=== PATIENT | female | born 1975 | race Caucasian/White ===

== ENCOUNTER → 2016-07-28 | Outpatient (CLI) | payer MEDICARE, MEDICAID ==
[~2016-07-28] MED LIST: /AUGM875TA; /DULO30CA PO; /ESOM40CA; /FENT25PA; /PANT40TA; /SUCR1TA OR; AMIT25TA2 PO; AMIT50TA2; ATEN25TA; CETI10TA; CLONIDINE PO; COLA100C2; COLA100C2 PO; DEPO SHOT; FERROUS SULFATE PO; FURO40TA2; MAXALT PO; MAXALT-MLT; MELOPOW PO; MORP30TA4; MORPHINE SULFATE IR PO; MOTRIN; NEUR600T PO; OXYC10TA12; PERC5TAB8; PRIL40CA PO; PROPANOLOL PO; REQUIP PO; ROZEREM; SAVELLA; SKELAXIN PO; SOMA350T; TOPI25TA2 PO; TRAM50TA2; VIT D; VITAMIN D; VITAMIN D50000 UNT; ZYRTEC; [UNRECOGNIZED DRUG - OTHER]; [UNRECOGNIZED DRUG - OTHER]
== END ==
LOC: M SMT 10:09
PROVIDERS: ATTEND Nurse Practitioner Family
DX: D80.1 Nonfamilial hypogammaglobulinemia (principal)

== ENCOUNTER → 2016-07-28 | Outpatient (CLI) | payer MEDICARE, MEDICAID ==
[2016-07-28 13:33] LABS: MEAN CORPUSCULAR HEMOGLOBIN 30.4 pg (27.0-33.0); MEAN CORPUSCULAR HGB CONC 32.1 g/dl (32.0-36.5); MEAN CORPUSCULAR VOLUME 94.8 fl (80.0-96.0); RED CELL DISTRIBUTION WIDTH 12.2 % (11.5-14.5); WHITE BLOOD COUNT 5.3 K/mm3 (4.0-10.0)
[2016-07-28 14:18] LABS: ALBUMIN 3.4 GM/DL (3.2-5.2); ALBUMIN/GLOBULIN RATIO 1.36 (1.00-1.93); ALKALINE PHOSPHATASE 112 U/L (45-117); ALT/SGPT 124 U/L (12-78); ANION GAP 8 MEQ/L (8-16); AST/SGOT 59 U/L (15-37); BILIRUBIN,TOTAL 0.3 MG/DL (0.2-1.0); BLOOD UREA NITROGEN 13 MG/DL (7-18); CALCIUM LEVEL 8.7 MG/DL (8.5-10.1); CARBON DIOXIDE LEVEL 25 MEQ/L (21-32); CHLORIDE LEVEL 110 MEQ/L (98-107); CHOLESTEROL LEVEL 171 MG/DL (<200); CREATININE FOR GFR 0.64 MG/DL (0.55-1.02); FERRITIN 641 NG/ML (8-252); GLOMERULAR FILTRATION RATE > 60.0 (>60); GLUCOSE, FASTING 86 MG/DL (70-105); PERCENT SATURATION 41.6 % (13.2-37.4); POTASSIUM SERUM 4.2 MEQ/L (3.5-5.1); SODIUM LEVEL 143 MEQ/L (136-145); TOTAL IRON BINDING CAPACITY 257 UG/DL (250-450); TOTAL PROTEIN 5.9 GM/DL (6.4-8.2); TRIGLYCERIDES LEVEL 100 MG/DL (<150)
== END ==
LOC: M SMT 10:03
PROVIDERS: ATTEND Nurse Practitioner Family
DX: D80.1 Nonfamilial hypogammaglobulinemia (principal); E78.5 Hyperlipidemia, unspecified; D53.9 Nutritional anemia, unspecified; E55.9 Vitamin D deficiency, unspecified; E11.9 Type 2 diabetes mellitus without complications

== ENCOUNTER → 2016-08-13 | Outpatient (CLI) | payer MEDICARE, MEDICAID ==
--- NOTE | 2016-08-13 09:30 | REP ---
HEPATIC ULTRASOUND: 08/13/2016 CLINICAL HISTORY: Elevated LFTs. COMPARISON: Ultrasound 09/18/2013, CT without contrast 10/13/2013. FINDINGS: Sonographic evaluation of the right upper quadrant shows the liver generally homogeneous in its echotexture. There is one subcapsular hyperechoic focus posteriorly in the right lobe of the liver unchanged from the previous ultrasound and seen as a capsular or subcapsular calcification on the CT at about the level of the right adrenal gland on that study. There is no visible hepatic mass, intrahepatic biliary dilatation nor adjacent ascites. The gallbladder is surgically absent. Common duct is 5.8 mm without a filling defect or stone. Pancreas is obscured by fairly extensive bowel gas shadowing. Right kidney is 12.4 x 5.5 x 4 cm and shows no hydronephrosis or stone. IMPRESSION: 1. Homogeneous liver parenchymal appearance without mass, cyst, dilated duct or ascites. Small subcapsular calcification again noted posterior right hepatic lobe unchanged from multiple prior studies. 2. Status post cholecystectomy with common duct without a stone and normal size for postoperative patient. 3. Right kidney unremarkable and the pancreas obscured. There was no ascites. Signed by John Trevino MD 08/13/2016 12:00 P
== END ==
LOC: M RAD 07:42
PROVIDERS: ATTEND Nurse Practitioner Family
DX: R79.89 Other specified abnormal findings of blood chemistry (principal)

== ENCOUNTER 2016-10-04 08:45 | Emergency (ER) | payer MEDICARE, MEDICAID ==
[~2016-10-04] VITALS: Ht 170.2 cm; Wt 90.7 kg
[2016-10-04] MEDS ORDERED: ROPI3TAB PO (09:06)
[2016-10-04] MEDS ORDERED: OMEP40CA2 PO (09:06)
[2016-10-04] MEDS ORDERED: MAXA10TA15 PO (09:06)
[2016-10-04] MEDS ORDERED: META800T82 PO (09:06)
[2016-10-04] MEDS ORDERED: INDE80CA PO (09:06)
[2016-10-04] MEDS ORDERED: FERR325T3 PO (09:06)
[2016-10-04] MEDS ORDERED: AMIT100TA PO (09:06)
[2016-10-04] MEDS ORDERED: TOPI50TA4 PO (09:06)
[2016-10-04] MEDS ORDERED: MORP-38 PO (09:06)
[2016-10-04] MEDS ORDERED: TOPI200T4 PO (09:06)
[2016-10-04] MEDS ORDERED: ATIV1TAB7 PO (09:06)
[2016-10-04] MEDS ORDERED: BUPIVACAINE INJ (09:06)
[2016-10-04] MEDS ORDERED: MORP15IN4 IJ (09:06)
[2016-10-04] MEDS ORDERED: GABA-283 PO (09:06)
[2016-10-04] MEDS ORDERED: QUET1TAB8 PO (09:06)
[2016-10-04] MEDS ORDERED: MORPHINE INJ (09:06)
[2016-10-04] MEDS ORDERED: DULO30CA PO (09:06)
[2016-10-04] MEDS ORDERED: MONT10TA2 PO (09:06)
[2016-10-04] MEDS ORDERED: ONDANSETRON 4MG/2ML VIAL (J2405) As Ordered ONE (09:29)
[2016-10-04] MEDS ORDERED: ONDANSETRON 4MG/2ML VIAL (J2405) IV ONE (09:30)
[2016-10-04] MEDS ORDERED: LR 1,000 ML IV ONE (09:30)
[2016-10-04 09:57] LABS: BASO % 0.3 % (0.0-1.0); EOS % 0.6 % (0.0-3.0); LARGE UNSTAINED CELL # 0.1 K/mm3 (0.0-0.4); LARGE UNSTAINED CELL % 1.1 % (0.0-4.0); LYMPH # 1.2 K/mm3 (1.5-4.5); LYMPH % 23.2 % (24.0-44.0); MEAN CORPUSCULAR VOLUME 88.6 fl (80.0-96.0); MONO # 0.2 K/mm3 (0.0-0.8); MONO % 4.2 % (0.0-5.0); NEUTROPHILS # 3.5 K/mm3 (1.8-7.7); NEUTROPHILS % 70.6 % (36.0-66.0); PLATELET COUNT, AUTOMATED 191 k/mm3 (150-450); RED CELL DISTRIBUTION WIDTH 11.3 % (11.5-14.5)
[2016-10-04 10:39] LABS: ALBUMIN 4.1 GM/DL (3.2-5.2); ALBUMIN/GLOBULIN RATIO 1.41 (1.00-1.93); ALKALINE PHOSPHATASE 83 U/L (45-117); ALT/SGPT 23 U/L (12-78); ANION GAP 9 MEQ/L (8-16); AST/SGOT 12 U/L (15-37); BILIRUBIN,TOTAL 0.4 MG/DL (0.2-1.0); BLOOD UREA NITROGEN 8 MG/DL (7-18); CARBON DIOXIDE LEVEL 24 MEQ/L (21-32); CHLORIDE LEVEL 111 MEQ/L (98-107); CREATININE FOR GFR 0.58 MG/DL (0.55-1.02); GLOMERULAR FILTRATION RATE > 60.0 (>60); GLUCOSE, FASTING 95 MG/DL (70-105); POTASSIUM SERUM 3.6 MEQ/L (3.5-5.1); SODIUM LEVEL 144 MEQ/L (136-145)
[2016-10-04] MEDS ORDERED: ZOFR4TAB3 PO (11:31)
[2016-10-04 11:37] VITALS: BP 147/98
== END 2016-10-04 11:48 | disposition home or self-care (01) ==
LOC: M ED 09:41
DX: K29.70 Gastritis, unspecified, without bleeding (principal); M54.9 Dorsalgia, unspecified; G89.29 Other chronic pain; Z87.891 Personal history of nicotine dependence; Z88.1 Allergy status to other antibiotic agents; Z88.8 Allergy status to other drugs, medicaments and biological substances; Z79.899 Other long term (current) drug therapy
CPT/HCPCS: 80053; 83690; 85025; 96374; 99282; J2405

== ENCOUNTER 2016-10-09 19:39 | Emergency (ER) | payer MEDICARE, MEDICAID ==
[~2016-10-09] VITALS: Ht 170.2 cm; Wt 90.7 kg
[~2016-10-09 19:39] MED LIST changes: +AMIT100TA PO; +ATIV1TAB7 PO; +BUPIVACAINE INJ; +DULO30CA PO; +FERR325T3 PO; +GABA-283 PO; +INDE80CA PO; +MAXA10TA15 PO; +META800T82 PO; +MONT10TA2 PO; +MORP-38 PO; +MORP15IN4 IJ; +MORPHINE INJ; +OMEP40CA2 PO; +QUET1TAB8 PO; +ROPI3TAB PO; +TOPI200T4 PO; +TOPI50TA4 PO; +ZOFR4TAB3 PO
[2016-10-09] MEDS ORDERED: FLUORESCEIN OPHTH 1 MG STRIP OD ONE (23:30)
[2016-10-09] MEDS ORDERED: TETRACAINE 0.5% OPHTH SOLN 4ML OU ONE (23:30)
[2016-10-10] MEDS ORDERED: ERYTHROMYCIN OPHTH OINT OD ONE
[2016-10-10] MEDS ORDERED: valACYclovir HCL 500 MG TAB PO ONE
[2016-10-10] MEDS ORDERED: VALT1TAB PO (00:01)
[2016-10-10] MEDS ORDERED: ERYTOIN8 OD (00:04)
[2016-10-10 00:27] VITALS: BP 132/84
== END 2016-10-10 00:30 | disposition home or self-care (01) ==
LOC: M ED 20:52
DX: B02.9 Zoster without complications (principal)
CPT/HCPCS: 99282; G0463

== ENCOUNTER → 2016-11-24 | Outpatient (CLI) | payer MEDICARE, MEDICAID ==
[~2016-11-24] MED LIST changes: +ERYTOIN8 OD; +VALT1TAB PO
[2016-11-24 11:29] LABS: MEAN CORPUSCULAR HEMOGLOBIN 31.2 pg (27.0-33.0); MEAN CORPUSCULAR HGB CONC 32.7 g/dl (32.0-36.5); MEAN CORPUSCULAR VOLUME 95.6 fl (80.0-96.0); RED CELL DISTRIBUTION WIDTH 12.1 % (11.5-14.5); WHITE BLOOD COUNT 4.3 K/mm3 (4.0-10.0)
[2016-11-24 12:13] LABS: ALBUMIN 3.6 GM/DL (3.2-5.2); ALBUMIN/GLOBULIN RATIO 1.38 (1.00-1.93); ALKALINE PHOSPHATASE 82 U/L (45-117); ALT/SGPT 35 U/L (12-78); ANION GAP 7 MEQ/L (8-16); AST/SGOT 12 U/L (15-37); BILIRUBIN,TOTAL 0.3 MG/DL (0.2-1.0); BLOOD UREA NITROGEN 10 MG/DL (7-18); CALCIUM LEVEL 8.5 MG/DL (8.5-10.1); CARBON DIOXIDE LEVEL 23 MEQ/L (21-32); CHLORIDE LEVEL 113 MEQ/L (98-107); CHOLESTEROL LEVEL 172 MG/DL (<200); CREATININE FOR GFR 0.73 MG/DL (0.55-1.02); FERRITIN 567 NG/ML (8-252); GLOMERULAR FILTRATION RATE > 60.0 (>60); GLUCOSE, FASTING 91 MG/DL (70-105); PERCENT SATURATION 26.1 % (13.2-37.4); POTASSIUM SERUM 3.9 MEQ/L (3.5-5.1); SODIUM LEVEL 143 MEQ/L (136-145); TOTAL IRON BINDING CAPACITY 245 UG/DL (250-450); TOTAL PROTEIN 6.2 GM/DL (6.4-8.2); TRIGLYCERIDES LEVEL 98 MG/DL (<150)
== END ==
LOC: M LRY 08:11
PROVIDERS: ATTEND Internal Medicine Cardiovascular Disease
DX: D64.9 Anemia, unspecified (principal); E78.00 Pure hypercholesterolemia, unspecified; R73.9 Hyperglycemia, unspecified

== ENCOUNTER → 2017-01-01 | Outpatient (CLI) | payer MEDICARE, MEDICAID ==
[~2017-01-01] MED LIST changes: +BENA25CA4 PO; +DEPO150I IM; +DRIS50002 PO; +TOPA100T8 PO
[2017-01-01 11:47] LABS: FREE T4 0.87 NG/DL (0.76-1.46)
== END ==
LOC: M LAB 10:30
PROVIDERS: ATTEND Nurse Practitioner Family
DX: E04.1 Nontoxic single thyroid nodule (principal)

== ENCOUNTER → 2017-01-01 | Outpatient (CLI) | payer MEDICARE, MEDICAID ==
--- NOTE | 2017-01-01 11:22 | REP ---
CT cervical spine without contrast HISTORY: Cervicalgia COMPARISON: 05/17/2015 There is no acute fracture or subluxation. There is no disc bulge or herniation. The spinal canal and neural foramina are patent. The intervertebral discs and vertebral bodies are normal in height. IMPRESSION: There is no acute fracture or subluxation. Signed by William Dobbs MD 01/01/2017 11:13 A
== END ==
LOC: M RAD 10:33
PROVIDERS: ATTEND Physician Assistant Medical
DX: M54.2 Cervicalgia (principal); M47.892 Other spondylosis, cervical region; E04.1 Nontoxic single thyroid nodule

== ENCOUNTER → 2017-01-13 | Outpatient (CLI) | payer MEDICARE, MEDICAID ==
[~2017-01-13] VITALS: Ht 170.2 cm; Wt 89.8 kg
[~2017-01-13] MED LIST changes: +LIDOCAINE 2% INJ 100 MG/5 ML SDV (FOR ANES.) As Ordered ONE; +NS 1,000 ML IV ONE; +PROPOFOL 500 MG/50 ML VIAL As Ordered ONE
--- NOTE | 2017-01-13 11:20 | ROOR ---
Patient Name: Consuelo Huber Procedure Date: 01/13/2017 10:59 AM Date of : 1975 Age: 41 Room: [facility] Gender: Female Note Status: Finalized Procedure: Upper GI endoscopy Indications: Follow-up of gastritis Providers: Rayshawn Parish MD Referring MD: OBDULIA SANTORO MD Requesting Provider: Medicines: Monitored Anesthesia Care Complications: No immediate complications. Procedure: Pre-Anesthesia Assessment: - Prior to the procedure, a History and Physical was performed, and patient medications and allergies were reviewed. The patient is competent. The risks and benefits of the procedure and the sedation options and risks were discussed with the patient. All questions were answered and informed consent was obtained. Patient identification and proposed procedure were verified by the physician, the nurse and the anesthesiologist in the procedure room. Mental Status Examination: alert and oriented. Airway Examination: normal oropharyngeal airway and neck mobility. Respiratory Examination: clear to auscultation. CV Examination: normal. Prophylactic Antibiotics: The patient does not require prophylactic antibiotics. Prior Anticoagulants: The patient has taken no previous anticoagulant or antiplatelet agents. ASA Grade Assessment: III - A patient with severe systemic disease. After reviewing the risks and benefits, the patient was deemed in satisfactory condition to undergo the procedure. The anesthesia plan was to use monitored anesthesia care (MAC). Immediately prior to administration of medications, the patient was re-assessed for adequacy to receive sedatives. The heart rate, respiratory rate, oxygen saturations, blood pressure, adequacy of pulmonary ventilation, and response to care were monitored throughout the procedure. The physical status of the patient was re-assessed after the procedure. The Endoscope was introduced through the mouth, and advanced to the afferent and efferent jejunal loops. The upper GI endoscopy was accomplished without difficulty. The patient tolerated the procedure well. Findings: The examined esophagus was normal. The entire examined stomach was normal. The examined jejunum was normal. Impression: - Normal esophagus. - Normal stomach. - Normal examined jejunum. - No specimens collected. - Normal examination. Recommendation: - Discharge patient to home (ambulatory). Rayshawn Parish MD Rayshawn Parish MD 01/13/2017 11:20:34 AM This report has been signed electronically. Number of Addenda: 0 Note Initiated On: 01/13/2017 10:59 AM Estimated Blood Loss: Estimated blood loss: none.
--- NOTE | 2017-01-13 11:24 | ROOR ---
Patient Name: Consuelo Huber Procedure Date: 01/13/2017 11:00 AM Date of : 1975 Age: 41 Room: [facility] Gender: Female Note Status: Finalized Procedure: Colonoscopy Indications: High risk colon cancer surveillance: Personal history of colonic polyps, Incidental - Constipation Providers: Rayshawn Parish MD Referring MD: OBDULIA SANTORO MD Requesting Provider: Medicines: Monitored Anesthesia Care Complications: No immediate complications. Procedure: Pre-Anesthesia Assessment: - Prior to the procedure, a History and Physical was performed, and patient medications and allergies were reviewed. The patient is competent. The risks and benefits of the procedure and the sedation options and risks were discussed with the patient. All questions were answered and informed consent was obtained. Patient identification and proposed procedure were verified by the physician, the nurse and the anesthesiologist in the procedure room. Mental Status Examination: alert and oriented. Airway Examination: normal oropharyngeal airway and neck mobility. Respiratory Examination: clear to auscultation. CV Examination: normal. Prophylactic Antibiotics: The patient does not require prophylactic antibiotics. Prior Anticoagulants: The patient has taken no previous anticoagulant or antiplatelet agents. ASA Grade Assessment: III - A patient with severe systemic disease. After reviewing the risks and benefits, the patient was deemed in satisfactory condition to undergo the procedure. The anesthesia plan was to use monitored anesthesia care (MAC). Immediately prior to administration of medications, the patient was re-assessed for adequacy to receive sedatives. The heart rate, respiratory rate, oxygen saturations, blood pressure, adequacy of pulmonary ventilation, and response to care were monitored throughout the procedure. The physical status of the patient was re-assessed after the procedure. The Colonoscope was introduced through the anus with the intention of advancing to the ileum. The scope was advanced to the sigmoid colon before the procedure was aborted. Medications were given. The colonoscopy was aborted due to poor bowel prep with stool present. Findings: The perianal exam findings include non-thrombosed external hemorrhoids. Impression: - The procedure was aborted due to poor bowel prep with stool present. - Non-thrombosed external hemorrhoids found on perianal exam. - No specimens collected. - The exam was suboptimal due to patient preparation. Recommendation: - Discharge patient to home (ambulatory). - Repeat colonoscopy at the next available appointment because the bowel preparation was poor. - Return to my office in 1 month. Rayshawn Parish MD Rayshawn Parish MD 01/13/2017 11:24:07 AM This report has been signed electronically. Number of Addenda: 0 Note Initiated On: 01/13/2017 11:00 AM Estimated Blood Loss: Estimated blood loss: none.
[2017-01-13 11:49] VITALS: BP 101/73
== END | disposition home or self-care (01) ==
LOC: M OPP 10:29
PROVIDERS: ATTEND Surgery
DX: Z12.11 Encounter for screening for malignant neoplasm of colon (principal); Z86.010 Personal history of colon polyps; K59.01 Slow transit constipation; K64.4 Residual hemorrhoidal skin tags; K29.70 Gastritis, unspecified, without bleeding; R10.9 Unspecified abdominal pain; R63.5 Abnormal weight gain; R12 Heartburn; Z87.11 Personal history of peptic ulcer disease; E04.1 Nontoxic single thyroid nodule; M19.90 Unspecified osteoarthritis, unspecified site; M54.9 Dorsalgia, unspecified; M79.7 Fibromyalgia; Z87.19 Personal history of other diseases of the digestive system; F41.9 Anxiety disorder, unspecified; F32.9 Major depressive disorder, single episode, unspecified; G43.909 Migraine, unspecified, not intractable, without status migrainosus; Z98.1 Arthrodesis status; Z98.84 Bariatric surgery status; Z88.8 Allergy status to other drugs, medicaments and biological substances; Z88.1 Allergy status to other antibiotic agents; Z79.899 Other long term (current) drug therapy; Z80.9 Family history of malignant neoplasm, unspecified

== ENCOUNTER → 2017-03-31 | Outpatient (CLI) | payer MEDICARE, MEDICAID ==
[~2017-03-31] MED LIST changes: -LIDOCAINE 2% INJ 100 MG/5 ML SDV (FOR ANES.) As Ordered ONE; +META1TAB22 PO; -META800T82 PO; -NS 1,000 ML IV ONE; -PROPOFOL 500 MG/50 ML VIAL As Ordered ONE; +TOPA100T12 PO; -TOPA100T8 PO; -TOPI200T4 PO; +TOPI200T7 PO; -TOPI50TA4 PO; +TOPI50TA9 PO
[2017-03-31 06:52] LABS: MEAN CORPUSCULAR HEMOGLOBIN 30.2 pg (27.0-33.0); MEAN CORPUSCULAR HGB CONC 33.4 g/dl (32.0-36.5); MEAN CORPUSCULAR VOLUME 90.4 fl (80.0-96.0); RED CELL DISTRIBUTION WIDTH 12.2 % (11.5-14.5); WHITE BLOOD COUNT 5.2 K/mm3 (4.0-10.0)
[2017-03-31 07:20] LABS: ALBUMIN 3.6 GM/DL (3.2-5.2); ALBUMIN/GLOBULIN RATIO 1.44 (1.00-1.93); ALKALINE PHOSPHATASE 101 U/L (45-117); ALT/SGPT 59 U/L (12-78); ANION GAP 6 MEQ/L (8-16); AST/SGOT 17 U/L (15-37); BILIRUBIN,TOTAL 0.4 MG/DL (0.2-1.0); BLOOD UREA NITROGEN 12 MG/DL (7-18); CALCIUM LEVEL 8.4 MG/DL (8.5-10.1); CARBON DIOXIDE LEVEL 27 MEQ/L (21-32); CHLORIDE LEVEL 109 MEQ/L (98-107); CHOLESTEROL LEVEL 171 MG/DL (<200); CREATININE FOR GFR 0.79 MG/DL (0.55-1.02); GLOMERULAR FILTRATION RATE > 60.0 (>58); GLUCOSE, FASTING 85 MG/DL (70-105); POTASSIUM SERUM 3.9 MEQ/L (3.5-5.1); SODIUM LEVEL 142 MEQ/L (136-145); TOTAL PROTEIN 6.1 GM/DL (6.4-8.2); TRIGLYCERIDES LEVEL 79 MG/DL (<150)
== END ==
LOC: M LAB 06:16
PROVIDERS: ATTEND Internal Medicine Cardiovascular Disease
DX: I10 Essential (primary) hypertension (principal); R73.01 Impaired fasting glucose

== ENCOUNTER 2017-05-05 06:48 | Outpatient (CLI) | payer MEDICARE, MEDICAID ==
[~2017-05-05] VITALS: Ht 170.2 cm; Wt 90.7 kg
[2017-05-05] MEDS ORDERED: NS 1,000 ML IV SCH (07:00)
[2017-05-05] MEDS ORDERED: SIMETHICONE 40MG/0.6ML DROPS 30ML As Ordered ONE (07:02)
[2017-05-05] MEDS ORDERED: PROPOFOL 200 MG/20 ML VIAL As Ordered ONE ×2 (07:30→08:06)
[2017-05-05] MEDS ORDERED: LIDOCAINE 2% INJ 100 MG/5 ML SDV (FOR ANES.) As Ordered ONE (07:30)
--- NOTE | 2017-05-05 08:18 | ROOR ---
Patient Name: Consuelo Huber Procedure Date: 05/05/2017 7:34 AM Date of : 1975 Age: 42 Room: [facility] Gender: Female Note Status: Finalized Procedure: Colonoscopy Indications: Family history of colon cancer in multiple second-degree relatives, Constipation Providers: Rayshawn Parish MD Referring MD: KITTY NGUYEN NP Requesting Provider: Medicines: Monitored Anesthesia Care Complications: No immediate complications. Procedure: Pre-Anesthesia Assessment: - Prior to the procedure, a History and Physical was performed, and patient medications and allergies were reviewed. The patient is competent. The risks and benefits of the procedure and the sedation options and risks were discussed with the patient. All questions were answered and informed consent was obtained. Patient identification and proposed procedure were verified by the physician, the nurse and the anesthesiologist in the endoscopy suite. Mental Status Examination: alert and oriented. Airway Examination: normal oropharyngeal airway and neck mobility. Respiratory Examination: clear to auscultation. CV Examination: normal. Prophylactic Antibiotics: The patient does not require prophylactic antibiotics. Prior Anticoagulants: The patient has taken no previous anticoagulant or antiplatelet agents. ASA Grade Assessment: III - A patient with severe systemic disease. After reviewing the risks and benefits, the patient was deemed in satisfactory condition to undergo the procedure. The anesthesia plan was to use monitored anesthesia care (MAC). Immediately prior to administration of medications, the patient was re-assessed for adequacy to receive sedatives. The heart rate, respiratory rate, oxygen saturations, blood pressure, adequacy of pulmonary ventilation, and response to care were monitored throughout the procedure. The physical status of the patient was re-assessed after the procedure. The Colonoscope was introduced through the anus and advanced to the cecum, identified by appendiceal orifice and ileocecal valve. The colonoscopy was technically difficult and complex due to a redundant colon. Successful completion of the procedure was aided by applying abdominal pressure. The patient tolerated the procedure well. The quality of the bowel preparation was good. Findings: The perianal and digital rectal examinations were normal. The lumen of the colon (entire examined portion) was moderately dilated. Three flat polyps were found in the distal sigmoid colon. The polyps were diminutive in size. These polyps were removed with a cold snare. Resection and retrieval were complete. Estimated blood loss was minimal. No additional abnormalities were found on retroflexion. Impression: - Dilated in the entire examined colon. - Three diminutive polyps in the distal sigmoid colon, removed with a cold snare. Resected and retrieved. Recommendation: - Discharge patient to home (ambulatory). - Miralax 1 capful (17 grams) in 8 ounces of water PO daily indefinitely. - Repeat colonoscopy in 5 years for surveillance based on pathology results. Rayshawn Parish MD Rayshawn Parish MD 05/05/2017 8:18:29 AM This report has been signed electronically. Number of Addenda: 0 Note Initiated On: 05/05/2017 7:34 AM Estimated Blood Loss: Estimated blood loss was minimal.
[2017-05-05 08:35] VITALS: BP 120/79
== END 2017-05-05 08:41 | disposition home or self-care (01) ==
LOC: M OPP 06:48
PROVIDERS: ATTEND Surgery
DX: K59.01 Slow transit constipation (principal); R10.84 Generalized abdominal pain; Z86.010 Personal history of colon polyps; Z80.0 Family history of malignant neoplasm of digestive organs; K63.5 Polyp of colon; E04.1 Nontoxic single thyroid nodule; R12 Heartburn; D64.9 Anemia, unspecified; K25.5 Chronic or unspecified gastric ulcer with perforation; E11.9 Type 2 diabetes mellitus without complications; M19.90 Unspecified osteoarthritis, unspecified site; M41.9 Scoliosis, unspecified; M79.7 Fibromyalgia; F41.9 Anxiety disorder, unspecified; F32.9 Major depressive disorder, single episode, unspecified; G43.909 Migraine, unspecified, not intractable, without status migrainosus; Z98.1 Arthrodesis status; Z87.19 Personal history of other diseases of the digestive system; Z98.84 Bariatric surgery status; Z88.1 Allergy status to other antibiotic agents; Z88.8 Allergy status to other drugs, medicaments and biological substances; Z97.8 Presence of other specified devices; Z79.899 Other long term (current) drug therapy; Z79.891 Long term (current) use of opiate analgesic

== ENCOUNTER → 2017-07-06 | Outpatient (CLI) | payer MEDICARE, MEDICAID ==
--- NOTE | 2017-07-07 16:25 | REP ---
RIGHT HAND COMPLETE: 07/06/2017: Clinical history: Trauma. Patient fell on her right side. The patient did not want to extend her fingers. Findings: Distal radius and ulna were grossly intact. Carpal bones and joint spaces were unremarkable. Metacarpals and phalanges show no fracture, subluxation or focal lesion. I do not see a radiopaque foreign body. Impression: 1. No fracture, avulsion, radiopaque foreign body or other acute finding. Signed by John Trevino MD 07/07/2017 04:30 P
--- NOTE | 2017-07-07 16:25 | REP ---
RIGHT ELBOW COMPLETE: 07/06/2017. Clinical history: Patient fell on right side, trauma. States pain medial side of the elbow. Four views were provided. Radial head and capitellum align normally. There is a small bone island within the capitellum. No radial head fracture or impaction injury. The proximal ulna and olecranon grossly intact as was the coronoid process of the olecranon. No avulsion at the triceps insertion on the posterior olecranon. Distal humerus and supracondylar region show no fracture. No abnormal soft-tissue calcification about the medial or lateral epicondyles. Impression: 1. No visible or displaced fracture, avulsion, joint effusion or other acute bony finding about the right elbow. Signed by John Trevino MD 07/07/2017 04:29 P
--- NOTE | 2017-07-07 16:26 | REP ---
RIGHT WRIST COMPLETE: 07/06/2017. Clinical history: Right wrist pain, patient fell. Findings: Four views are provided. Comparison to the right hand series today. Distal radius and ulna without fracture or focal lesion. Minimal ulna minus variant suggested. Radiocarpal articulation was unremarkable. Carpal bones and joint spaces were intact. The proximal metacarpals and their articulations were also normal. No abnormal soft-tissue calcification or swelling. Impression: 1. Negative right wrist series for fracture, avulsion, subluxation or other acute bony finding. Signed by John Trevino MD 07/07/2017 04:29 P
--- NOTE | 2017-07-07 16:26 | REP ---
RIGHT HIP COMPLETE: 07/06/2017. Clinical history: Trauma, patient fell on right side. Comparison: CT abdomen pelvis 06/15/2009. Findings: Two-views show the hip joint space preserved. There is no rim osteophyte on the acetabular roof tiny rim osteophyte femoral head on the frog-leg view. No sclerosis or subchondral cystic/sclerotic change of the superior acetabulum. A few pelvic phleboliths are noted. Femoral head neck, trochanters and proximal shaft of the femur are without fracture or focal lesion. Hardware from prior posterior spinal fusion noted with pedicle screw at S1 on the right. Visible portions of the pubic rami intact. Impression: 1. There is no fracture, avulsion, AVN or significant degenerative changes of the hip. Nothing acute. Prior spinal fusion with a arch bar and pedicle screw seen from the lower lumbar spine fusion. Signed by John Trevino MD 07/07/2017 04:30 P
--- NOTE | 2017-07-07 16:27 | REP ---
RIGHT FOREARM: 07/06/2017. Comparison: Right elbow and wrist this date. Clinical history: Trauma, patient fell on right side. She declined to remove a bracelet which has a metallic density as part of it. Radius and ulna show no fracture or focal bone lesion. Visualized carpal bones were intact. Visualized elbow shows a bone island in the capitellum but was otherwise unremarkable. No joint effusion. No foreign body or other acute finding. Impression: 1. Negative right forearm for fracture or other acute finding. Signed by John Trevino MD 07/07/2017 04:30 P
== END ==
LOC: M LRY 17:14
PROVIDERS: ATTEND Nurse Practitioner Family
DX: S59.901A Unspecified injury of right elbow, initial encounter (principal); W10.8XXA Fall (on) (from) other stairs and steps, initial encounter; Y92.017 Garden or yard in single-family (private) house as the place of occurrence of the external cause; Y93.9 Activity, unspecified; M25.531 Pain in right wrist; M79.631 Pain in right forearm; M79.641 Pain in right hand; Z98.1 Arthrodesis status

== ENCOUNTER → 2017-07-15 | Outpatient (CLI) | payer MEDICARE, MEDICAID ==
[2017-07-15 08:21] LABS: BASO # 0.1 10^3/uL (0.0-0.2); BASO % 1.7 % (0.0-1.0); EOS # 0.3 10^3/uL (0.0-0.50); EOS % 6.8 % (0.0-3.0); LYMPH # 2.2 10^3/uL (1.5-4.5); LYMPH % 46.9 % (24.0-44.0); MEAN CORPUSCULAR HEMOGLOBIN 30.1 pg (27.0-33.0); MEAN CORPUSCULAR HGB CONC 32.1 g/dl (32.0-36.5); MEAN CORPUSCULAR VOLUME 93.5 fl (80.0-96.0); MONO # 0.3 10^3/uL (0.0-0.8); MONO % 6.2 % (0.0-5.0); NEUTROPHILS # 1.8 10^3/uL (1.8-7.7); NEUTROPHILS % 38.4 % (36.0-66.0); PLATELET COUNT, AUTOMATED 228 10^3/uL (150-450); RED CELL DISTRIBUTION WIDTH 12.7 % (11.5-14.5); WHITE BLOOD COUNT 4.7 10^3/uL (4.0-10.0)
[2017-07-15 08:48] LABS: ALBUMIN 3.8 GM/DL (3.2-5.2); ALBUMIN/GLOBULIN RATIO 1.46 (1.00-1.93); ALKALINE PHOSPHATASE 76 U/L (45-117); ALT/SGPT 13 U/L (12-78); ANION GAP 8 MEQ/L (8-16); AST/SGOT 11 U/L (7-37); BILIRUBIN,TOTAL 0.3 MG/DL (0.2-1.0); BLOOD UREA NITROGEN 13 MG/DL (7-18); CALCIUM LEVEL 8.1 MG/DL (8.5-10.1); CARBON DIOXIDE LEVEL 26 MEQ/L (21-32); CHLORIDE LEVEL 112 MEQ/L (98-107); CHOLESTEROL LEVEL 186 MG/DL (<200); CREATININE FOR GFR 0.78 MG/DL (0.55-1.02); FREE T4 0.85 NG/DL (0.76-1.46); GLOMERULAR FILTRATION RATE > 60.0 (>58); GLUCOSE, FASTING 88 MG/DL (70-105); POTASSIUM SERUM 4.1 MEQ/L (3.5-5.1); SODIUM LEVEL 146 MEQ/L (136-145); TOTAL PROTEIN 6.4 GM/DL (6.4-8.2); TRIGLYCERIDES LEVEL 100 MG/DL (<150)
== END ==
LOC: M LAB 07:23
PROVIDERS: ATTEND Nurse Practitioner Adult Health
DX: R73.09 Other abnormal glucose (principal); D64.9 Anemia, unspecified; Z98.84 Bariatric surgery status; E55.9 Vitamin D deficiency, unspecified; E78.00 Pure hypercholesterolemia, unspecified

== ENCOUNTER → 2017-10-13 | Outpatient (CLI) | payer MEDICARE, MEDICAID ==
[2017-10-13 06:26] LABS: BASO # 0.1 10^3/uL (0.0-0.2); BASO % 1.4 % (0.0-1.0); EOS # 0.4 10^3/uL (0.0-0.50); HEMATOCRIT 46.8 % (36.0-47.0); HEMOGLOBIN 14.8 g/dl (12.0-16.0); IMMATURE GRANULOCYTE % 0.2 % (0-3.0); LYMPH # 2.5 10^3/uL (1.5-4.5); LYMPH % 44.1 % (24.0-44.0); MEAN CORPUSCULAR HEMOGLOBIN 29.4 pg (27.0-33.0); MEAN CORPUSCULAR HGB CONC 31.6 g/dl (32.0-36.5); MONO # 0.3 10^3/uL (0.0-0.8); MONO % 5.2 % (0.0-5.0); NEUTROPHILS # 2.4 10^3/uL (1.8-7.7); NEUTROPHILS % 42.1 % (36.0-66.0); PLATELET COUNT, AUTOMATED 223 10^3/uL (150-450); RED BLOOD COUNT 5.03 10^6/uL (4.00-5.40); RED CELL DISTRIBUTION WIDTH 12.8 % (11.5-14.5); WHITE BLOOD COUNT 5.6 10^3/uL (4.0-10.0)
[2017-10-13 06:43] LABS: ESTIMATED AVERAGE GLUCOSE 97 MG/DL (60-110)
[2017-10-13 07:00] LABS: ALBUMIN 3.7 GM/DL (3.2-5.2); ALBUMIN/GLOBULIN RATIO 1.37 (1.00-1.93); ALKALINE PHOSPHATASE 86 U/L (45-117); ALT/SGPT 28 U/L (12-78); ANION GAP 5 MEQ/L (8-16); AST/SGOT 11 U/L (7-37); BILIRUBIN,TOTAL 0.4 MG/DL (0.2-1.0); BLOOD UREA NITROGEN 10 MG/DL (7-18); CALCIUM LEVEL 8.4 MG/DL (8.5-10.1); CARBON DIOXIDE LEVEL 27 MEQ/L (21-32); CHLORIDE LEVEL 113 MEQ/L (98-107); CHOLESTEROL LEVEL 178 MG/DL (<200); CHOLESTEROL RISK RATIO 3.068 (<5); CREATININE FOR GFR 0.81 MG/DL (0.55-1.30); FREE T4 0.87 NG/DL (0.76-1.46); GLOMERULAR FILTRATION RATE > 60.0 (>58); GLUCOSE, FASTING 91 MG/DL (70-100); HDL CHOLESTEROL 58 MG/DL (>40); NON-HDL-C 120 MG/DL; SODIUM LEVEL 145 MEQ/L (136-145); TOTAL PROTEIN 6.4 GM/DL (6.4-8.2); TRIGLYCERIDES LEVEL 115 MG/DL (<150)
[2017-10-13 10:39] LABS: TOTAL 25(OH) VITAMIN D 23.8 NG/ML (30.0-100.0)
== END ==
LOC: M LAB 06:09
DX: R73.9 Hyperglycemia, unspecified (principal); D64.9 Anemia, unspecified; E78.00 Pure hypercholesterolemia, unspecified; E55.9 Vitamin D deficiency, unspecified; Z79.899 Other long term (current) drug therapy
CPT/HCPCS: 84443

== ENCOUNTER → 2017-11-08 | Outpatient (CLI) | payer MEDICARE, MEDICAID | LOC: M LRY 16:07 | DX: M25.531 Pain in right wrist (principal) | CPT/HCPCS: 73110; G0463 ==

== ENCOUNTER → 2017-11-09 | Outpatient (CLI) | payer MEDICARE, MEDICAID | LOC: M RAD 08:50 | DX: M47.896 Other spondylosis, lumbar region (principal); R20.0 Anesthesia of skin; M51.34 Other intervertebral disc degeneration, thoracic region; M51.26 Other intervertebral disc displacement, lumbar region | CPT/HCPCS: 72128 ==

== ENCOUNTER → 2017-11-11 | Outpatient (CLI) | payer MEDICARE, MEDICAID ==
[2017-11-11 12:02] LABS: BASO # 0.1 10^3/uL (0.0-0.2); BASO % 1.4 % (0.0-1.0); EOS # 0.3 10^3/uL (0.0-0.50); EOS % 5.2 % (0.0-3.0); HEMATOCRIT 45.9 % (36.0-47.0); HEMOGLOBIN 14.9 g/dl (12.0-15.5); IMMATURE GRANULOCYTE % 0.2 % (0-3.0); LYMPH # 2.2 10^3/uL (1.5-4.5); MEAN CORPUSCULAR HEMOGLOBIN 29.6 pg (27.0-33.0); MEAN CORPUSCULAR HGB CONC 32.5 g/dl (32.0-36.5); MEAN CORPUSCULAR VOLUME 91.3 fl (80.0-96.0); MONO # 0.3 10^3/uL (0.0-0.8); MONO % 4.9 % (0.0-5.0); NEUTROPHILS # 2.9 10^3/uL (1.8-7.7); NEUTROPHILS % 50.3 % (36.0-66.0); PLATELET COUNT, AUTOMATED 221 10^3/uL (150-450); RED BLOOD COUNT 5.03 10^6/uL (4.00-5.40); RED CELL DISTRIBUTION WIDTH 12.7 % (11.5-14.5); WHITE BLOOD COUNT 5.7 10^3/uL (4.0-10.0)
[2017-11-11 12:39] LABS: ERYTHROCYTE SEDIMENTATION RATE 3 mm/hr (0-20)
[2017-11-11 13:00] LABS: ALBUMIN 3.8 GM/DL (3.2-5.2); ANION GAP 5 MEQ/L (8-16); BLOOD UREA NITROGEN 11 MG/DL (7-18); CALCIUM LEVEL 8.5 MG/DL (8.5-10.1); CARBON DIOXIDE LEVEL 23 MEQ/L (21-32); CHLORIDE LEVEL 112 MEQ/L (98-107); CREATININE FOR GFR 0.65 MG/DL (0.55-1.30); GLOMERULAR FILTRATION RATE > 60.0 (>58); GLUCOSE, FASTING 80 MG/DL (70-100); PHOSPHORUS LEVEL 3.6 MG/DL (2.5-4.9); POTASSIUM SERUM 4.2 MEQ/L (3.5-5.1); RHEUMATOID FACTOR QUANT < 10.0 IU/ML (<15.0); SODIUM LEVEL 140 MEQ/L (136-145); TOTAL PROTEIN 6.5 GM/DL (6.4-8.2)
[2017-11-12 14:19] LABS: ANTINUCLEAR ANTIBODIES DIRECT Negative (Negative)
[2017-11-13 00:08] LABS: IgG P18 AB Absent (.); IgG P23 AB Absent (.); IgG P28 AB Absent (.); IgG P30 AB Present (.); IgG P39 AB Absent (.); IgG P41 AB Present (.); IgG P45 AB Present (.); IgG P58 AB Absent (.); IgG P66 AB Absent (.); IgG P93 AB Absent (.); IgM P23 AB Absent (.); IgM P39 AB Absent (.); IgM P41 AB Absent (.); LYME IgG WB INTERPRETATION Negative (.); LYME IgM WB INTERPRETATION Negative (.)
== END ==
LOC: M LRY 10:26
DX: R51 Headache (principal); M25.50 Pain in unspecified joint; M54.2 Cervicalgia; Z79.899 Other long term (current) drug therapy
CPT/HCPCS: 84165

== ENCOUNTER → 2017-11-19 | Outpatient (CLI) | payer MEDICARE, MEDICAID ==
[2017-11-19 12:06] LABS: TOTAL PROTEIN,RANDOM URINE 32.3 MG/DL (0.0-12.0)
== END ==
LOC: M LRY 08:25
DX: M54.5 Low back pain (principal); M79.609 Pain in unspecified limb; R79.9 Abnormal finding of blood chemistry, unspecified
CPT/HCPCS: 36415

== ENCOUNTER → 2018-02-04 | Outpatient (CLI) | payer MEDICARE, MEDICAID ==
[2018-02-04 09:46] LABS: BASO # 0.1 10^3/uL (0.0-0.2); BASO % 1.5 % (0.0-1.0); EOS # 0.3 10^3/uL (0.0-0.50); EOS % 5.5 % (0.0-3.0); HEMATOCRIT 45.8 % (36.0-47.0); HEMOGLOBIN 14.8 g/dl (12.0-15.5); IMMATURE GRANULOCYTE % 0.2 % (0-3.0); LYMPH # 1.7 10^3/uL (1.5-4.5); LYMPH % 35.2 % (24.0-44.0); MEAN CORPUSCULAR HEMOGLOBIN 30.4 pg (27.0-33.0); MEAN CORPUSCULAR HGB CONC 32.3 g/dl (32.0-36.5); MONO # 0.3 10^3/uL (0.0-0.8); NEUTROPHILS # 2.4 10^3/uL (1.8-7.7); NEUTROPHILS % 51.6 % (36.0-66.0); PLATELET COUNT, AUTOMATED 162 10^3/uL (150-450); RED BLOOD COUNT 4.87 10^6/uL (4.00-5.40); RED CELL DISTRIBUTION WIDTH 12.7 % (11.5-14.5); WHITE BLOOD COUNT 4.7 10^3/uL (4.0-10.0)
[2018-02-04 09:59] LABS: POS COUNT POS FLAG
[2018-02-04 10:12] LABS: TOTAL 25(OH) VITAMIN D 22.7 NG/ML (30.0-100.0)
[2018-02-04 10:18] LABS: ESTIMATED AVERAGE GLUCOSE 103 MG/DL (60-110); HEMOGLOBIN A1c 5.2 %
[2018-02-04 10:26] LABS: MALB URINE SIEMENS 25.7 MG/L; MAU/CREAT RATIO 9.3 MCG/MG (0.0-30.0)
[2018-02-04 10:28] LABS: ALBUMIN 3.6 GM/DL (3.2-5.2); ALBUMIN/GLOBULIN RATIO 1.29 (1.00-1.93); ALKALINE PHOSPHATASE 123 U/L (45-117); ALT/SGPT 49 U/L (12-78); ANION GAP 8 MEQ/L (8-16); AST/SGOT 36 U/L (7-37); BILIRUBIN,TOTAL 0.3 MG/DL (0.2-1.0); BLOOD UREA NITROGEN 10 MG/DL (7-18); CALCIUM LEVEL 8.4 MG/DL (8.5-10.1); CARBON DIOXIDE LEVEL 24 MEQ/L (21-32); CHLORIDE LEVEL 113 MEQ/L (98-107); CHOLESTEROL LEVEL 172 MG/DL (<200); CHOLESTEROL RISK RATIO 3.127 (<5); CREATININE FOR GFR 0.72 MG/DL (0.55-1.30); FERRITIN 631 NG/ML (8-252); GLOMERULAR FILTRATION RATE > 60.0 (>58); GLUCOSE, FASTING 81 MG/DL (70-100); HDL CHOLESTEROL 55 MG/DL (>40); IRON (FE) 83 UG/DL (50-170); LDL CHOLESTEROL 98.2 MG/DL (<100); NON-HDL-C 117 MG/DL; PERCENT SATURATION 36.7 % (13.2-45.0); POTASSIUM SERUM 3.9 MEQ/L (3.5-5.1); SODIUM LEVEL 145 MEQ/L (136-145); TOTAL IRON BINDING CAPACITY 226 UG/DL (250-450); TOTAL PROTEIN 6.4 GM/DL (6.4-8.2); TRIGLYCERIDES LEVEL 94 MG/DL (<150)
== END ==
LOC: M LAB 08:42
DX: D64.9 Anemia, unspecified (principal); E55.9 Vitamin D deficiency, unspecified; Z79.899 Other long term (current) drug therapy
CPT/HCPCS: 83550

== ENCOUNTER 2018-02-10 15:43 | Emergency (ER) | payer MEDICARE, MEDICAID ==
[2018-02-10 18:30] LABS: ALBUMIN 3.8 GM/DL (3.2-5.2); ALBUMIN/GLOBULIN RATIO 1.19 (1.00-1.93); ALKALINE PHOSPHATASE 126 U/L (45-117); ALT/SGPT 30 U/L (12-78); AMYLASE 22 U/L (25-115); ANION GAP 9 MEQ/L (8-16); AST/SGOT 27 U/L (7-37); BILIRUBIN,DIRECT < 0.1 MG/DL (0.0-0.2); BILIRUBIN,TOTAL 0.5 MG/DL (0.2-1.0); BLOOD UREA NITROGEN 10 MG/DL (7-18); CALCIUM LEVEL 9.2 MG/DL (8.5-10.1); CARBON DIOXIDE LEVEL 23 MEQ/L (21-32); CHLORIDE LEVEL 111 MEQ/L (98-107); CPK CREATINE PHOSPHOKINASE 127 U/L (26-192); CREATININE FOR GFR 0.58 MG/DL (0.55-1.30); GLOMERULAR FILTRATION RATE > 60.0 (>58); GLUCOSE, FASTING 93 MG/DL (70-100); LIPASE 79 U/L (73-393); POTASSIUM SERUM 4.5 MEQ/L (3.5-5.1); SODIUM LEVEL 143 MEQ/L (136-145)
[2018-02-10 18:30] LABS: LACTIC ACID SEPSIS PROTOCOL 1.1 MMOL/L (0.4-2.0)
[2018-02-10 18:43] LABS: AMORPHOUS SEDIMENT RFX LARGE (NEGATIVE); KETONE, URINE AUTO RFX 1+ mg/dL (NEGATIVE); LEUKOCYTE ESTERASE UR AUTO RFX NEGATIVE (NEGATIVE); MUCUS, URINE RFX LARGE (NEGATIVE); NITRITE, URINE AUTO RFX NEGATIVE (NEGATIVE); RBC, URINE AUTO RFX 5 /HPF (0-3); SPECIFIC GRAVITY UR AUTO RFX 1.028 (1.002-1.035); SQUAM EPITHELIAL CELL UR AURFX 3 /HPF (0-6); WBC, URINE AUTO RFX 3 /HPF (0-3)
[2018-02-10 18:46] LABS: BASO # 0.1 10^3/uL (0.0-0.2); EOS # 0.1 10^3/uL (0.0-0.50); EOS % 1.2 % (0.0-3.0); HEMATOCRIT 49.4 % (36.0-47.0); HEMOGLOBIN 16.2 g/dl (12.0-15.5); IMMATURE GRANULOCYTE % 0.2 % (0-3.0); LYMPH # 1.8 10^3/uL (1.5-4.5); LYMPH % 30.2 % (24.0-44.0); MEAN CORPUSCULAR HEMOGLOBIN 30.2 pg (27.0-33.0); MEAN CORPUSCULAR HGB CONC 32.8 g/dl (32.0-36.5); MONO # 0.3 10^3/uL (0.0-0.8); MONO % 4.3 % (0.0-5.0); NEUTROPHILS # 3.7 10^3/uL (1.8-7.7); NEUTROPHILS % 63.1 % (36.0-66.0); PLATELET COUNT, AUTOMATED 215 10^3/uL (150-450); RED BLOOD COUNT 5.37 10^6/uL (4.00-5.40); RED CELL DISTRIBUTION WIDTH 12.1 % (11.5-14.5); WHITE BLOOD COUNT 5.9 10^3/uL (4.0-10.0)
[2018-02-10] MEDS: ONDANSETRON 4MG/2ML VIAL (J2405) IV (19:03)
[2018-02-10] MEDS: NS 1,000 ML IV (19:03)
[2018-02-10] MEDS: MORPHINE 15 MG SA TAB PO (19:35)
[2018-02-10] MEDS: ONDANSETRON 4 MG ORAL DISINTEGRATING TAB (Q0162 PER 1MG) PO (20:10)
[2018-02-10 22:17] LABS: CONTROL LINE HCG INT CTR LINE PRESENT; HCG, SERUM QUALITATIVE NEGATIVE (NEGATIVE)
== END 2018-02-10 20:14 | disposition home or self-care (01) ==
LOC: M ED 15:43
DX: R11.2 Nausea with vomiting, unspecified (principal); R19.7 Diarrhea, unspecified; E86.0 Dehydration; K21.9 Gastro-esophageal reflux disease without esophagitis; G43.909 Migraine, unspecified, not intractable, without status migrainosus; E11.9 Type 2 diabetes mellitus without complications; Z98.84 Bariatric surgery status; Z87.891 Personal history of nicotine dependence; Z79.899 Other long term (current) drug therapy; Z88.1 Allergy status to other antibiotic agents; Z88.8 Allergy status to other drugs, medicaments and biological substances

== ENCOUNTER 2018-02-11 08:38 | Emergency (ER) | payer MEDICARE, MEDICAID ==
[2018-02-11] MEDS: NS 1,000 ML IV ×2 (09:28→11:16)
[2018-02-11] MEDS: MORPHINE 4 MG/ML 1ML VIAL/SYRINGE (J2270) IV (09:28)
[2018-02-11] MEDS: METOCLOPRAMIDE INJ 10MG/2ML VIAL (J2765) IV (09:28)
[2018-02-11] MEDS ORDERED: ISOVUE-370 76% 100ML VIAL (Q9967) As Ordered (09:32)
[2018-02-11 10:30] LABS: BASO # 0.1 10^3/uL (0.0-0.2); BASO % 1.3 % (0.0-1.0); EOS % 0.4 % (0.0-3.0); HEMOGLOBIN 16.5 g/dl (12.0-15.5); IMMATURE GRANULOCYTE % 0.2 % (0-3.0); LYMPH % 22.1 % (24.0-44.0); MEAN CORPUSCULAR HEMOGLOBIN 30.3 pg (27.0-33.0); MEAN CORPUSCULAR VOLUME 91.7 fl (80.0-96.0); MONO # 0.2 10^3/uL (0.0-0.8); MONO % 3.5 % (0.0-5.0); NEUTROPHILS # 3.4 10^3/uL (1.8-7.7); NEUTROPHILS % 72.5 % (36.0-66.0); PLATELET COUNT, AUTOMATED 175 10^3/uL (150-450); RED BLOOD COUNT 5.45 10^6/uL (4.00-5.40); RED CELL DISTRIBUTION WIDTH 12.1 % (11.5-14.5); WHITE BLOOD COUNT 4.6 10^3/uL (4.0-10.0)
[2018-02-11 10:48] LABS: KETONE, URINE AUTO RFX 1+ mg/dL (NEGATIVE); LEUKOCYTE ESTERASE UR AUTO RFX NEGATIVE (NEGATIVE); MUCUS, URINE RFX SMALL (NEGATIVE); NITRITE, URINE AUTO RFX NEGATIVE (NEGATIVE); RBC, URINE AUTO RFX 1 /HPF (0-3); SQUAM EPITHELIAL CELL UR AURFX 4 /HPF (0-6); WBC, URINE AUTO RFX 0 /HPF (0-3)
[2018-02-11 10:50] LABS: SPECIFIC GRAVITY UR AUTO RFX >1.060 (1.002-1.035)
[2018-02-11 10:52] LABS: ALBUMIN 3.6 GM/DL (3.2-5.2); ALBUMIN/GLOBULIN RATIO 1.03 (1.00-1.93); ALKALINE PHOSPHATASE 110 U/L (45-117); ALT/SGPT 30 U/L (12-78); ANION GAP 8 MEQ/L (8-16); AST/SGOT 24 U/L (7-37); BILIRUBIN,DIRECT < 0.1 MG/DL (0.0-0.2); BILIRUBIN,TOTAL 0.5 MG/DL (0.2-1.0); BLOOD UREA NITROGEN 9 MG/DL (7-18); CALCIUM LEVEL 8.7 MG/DL (8.5-10.1); CARBON DIOXIDE LEVEL 25 MEQ/L (21-32); CHLORIDE LEVEL 111 MEQ/L (98-107); CREATININE FOR GFR 0.58 MG/DL (0.55-1.30); GLOMERULAR FILTRATION RATE > 60.0 (>58); GLUCOSE, FASTING 85 MG/DL (70-100); LIPASE 84 U/L (73-393); POTASSIUM SERUM 4.9 MEQ/L (3.5-5.1); SODIUM LEVEL 144 MEQ/L (136-145); TOTAL PROTEIN 7.1 GM/DL (6.4-8.2)
[2018-02-11] MEDS: DICYCLOMINE 10 MG CAP PO (11:16)
== END 2018-02-11 12:46 | disposition home or self-care (01) ==
LOC: M ED 08:38
DX: E86.0 Dehydration (principal); R10.30 Lower abdominal pain, unspecified; E11.9 Type 2 diabetes mellitus without complications; G43.909 Migraine, unspecified, not intractable, without status migrainosus; F41.9 Anxiety disorder, unspecified; F33.9 Major depressive disorder, recurrent, unspecified; M54.9 Dorsalgia, unspecified; Z98.84 Bariatric surgery status; Z79.899 Other long term (current) drug therapy; Z79.3 Long term (current) use of hormonal contraceptives; Z88.1 Allergy status to other antibiotic agents; Z88.8 Allergy status to other drugs, medicaments and biological substances

== ENCOUNTER 2018-02-13 11:08 | Inpatient (IN) | payer MEDICARE, MEDICAID ==
[2018-02-13 11:58] LABS: BASO % 0.4 % (0.0-1.0); EOS % 0.1 % (0.0-3.0); HEMATOCRIT 45.9 % (36.0-47.0); HEMOGLOBIN 15.6 g/dl (12.0-15.5); IMMATURE GRANULOCYTE % 1.1 % (0-3.0); LYMPH # 1.1 10^3/uL (1.5-4.5); LYMPH % 14.4 % (24.0-44.0); MEAN CORPUSCULAR HEMOGLOBIN 30.2 pg (27.0-33.0); MONO # 0.4 10^3/uL (0.0-0.8); MONO % 5.1 % (0.0-5.0); NEUTROPHILS # 5.8 10^3/uL (1.8-7.7); NEUTROPHILS % 78.9 % (36.0-66.0); PLATELET COUNT, AUTOMATED 190 10^3/uL (150-450); RED BLOOD COUNT 5.16 10^6/uL (4.00-5.40); RED CELL DISTRIBUTION WIDTH 11.9 % (11.5-14.5); WHITE BLOOD COUNT 7.3 10^3/uL (4.0-10.0)
[2018-02-13 12:10] LABS: ALBUMIN 3.6 GM/DL (3.2-5.2); ALBUMIN/GLOBULIN RATIO 1.44 (1.00-1.93); ALKALINE PHOSPHATASE 95 U/L (45-117); ALT/SGPT 56 U/L (12-78); ANION GAP 10 MEQ/L (8-16); AST/SGOT 29 U/L (7-37); BILIRUBIN,DIRECT 0.2 MG/DL (0.0-0.2); BILIRUBIN,TOTAL 0.5 MG/DL (0.2-1.0); BLOOD UREA NITROGEN 7 MG/DL (7-18); CALCIUM LEVEL 8.9 MG/DL (8.5-10.1); CARBON DIOXIDE LEVEL 26 MEQ/L (21-32); CHLORIDE LEVEL 109 MEQ/L (98-107); CREATININE FOR GFR 0.65 MG/DL (0.55-1.30); GLOMERULAR FILTRATION RATE > 60.0 (>58); GLUCOSE, FASTING 111 MG/DL (70-100); MAGNESIUM LEVEL 1.8 MG/DL (1.8-2.4); PHOSPHORUS LEVEL 2.4 MG/DL (2.5-4.9); POTASSIUM SERUM 2.9 MEQ/L (3.5-5.1); SODIUM LEVEL 145 MEQ/L (136-145); TOTAL PROTEIN 6.1 GM/DL (6.4-8.2)
[2018-02-13 12:29] LABS: CK-MB VALUE MASS 7.6 NG/ML (<3.6); TROPONIN I 0.02 NG/ML (< 0.10)
[2018-02-13] MEDS: POTASSIUM CHLORIDE 10% LIQ 20 MEQ/15 ML UDC PO (12:30)
[2018-02-13] MEDS: KCL 40MEQ in NS 1000ML 1,000 ML IV ×2 (12:30→16:27)
[2018-02-13 12:33] LABS: CPK CREATINE PHOSPHOKINASE 301 U/L (26-192); MB/CK RELATIVE INDEX 2.52 (< OR =4); MYOGLOBIN 524 NG/ML (13-71)
[2018-02-13] MEDS: GABAPENTIN 400 MG CAP PO ×2 (16:00→20:37)
[2018-02-13] MEDS: LORazepam 1 MG TAB PO ×2 (16:00→20:39)
[2018-02-13] MEDS: ACETAMINOPHEN 500 MG TAB PO (16:12)
[2018-02-13] MEDS ORDERED: PILL CRUSHER/CUTTER 1 EACH XX (16:30)
[2018-02-13] MEDS: LORazepam 2 MG/ML VIAL (J2060) IV (17:14)
[2018-02-13] MEDS: METOCLOPRAMIDE INJ 10MG/2ML VIAL (J2765) IV ×2 (17:22→23:42)
[2018-02-13] MEDS: SUCRALFATE 1 GM TAB PO ×2 (17:30→20:39)
[2018-02-13] MEDS: levETIRAcetam INJection 1,000 MG in D5W 100 ML IV (17:54)
[2018-02-13] MEDS: rOPINIRole 1MG TAB PO (20:37)
[2018-02-13] MEDS: PANTOPRAZOLE 40MG INJ (PROTONIX) (C9113) IV (20:37)
[2018-02-13] MEDS: PROPRANOLOL 20 MG TAB PO (20:38)
[2018-02-13] MEDS: TOPIRAMATE (TopAMAX) 100 MG TAB PO (20:38)
[2018-02-13] MEDS: DULoxetine 30 MG CAP (CYMBALTA) PO (20:38)
[2018-02-13] MEDS: AMITRIPTYLINE 50 MG TAB PO (20:38)
[2018-02-13] MEDS: QUEtiapine FUMARATE 100 MG TAB PO (20:39)
[2018-02-13] MEDS: ENOXAPARIN 40 MG/0.4 ML SYRINGE (J1650) SC (20:39)
[2018-02-13] MEDS: MORPHINE 30 MG TAB **MSIR PO (20:40)
[2018-02-13] MEDS: ONDANSETRON 4MG/2ML VIAL (J2405) IV (20:42)
[2018-02-13 21:19] LABS: AMORPHOUS SEDIMENT RFX SMALL (NEGATIVE); KETONE, URINE AUTO RFX TRACE mg/dL (NEGATIVE); LEUKOCYTE ESTERASE UR AUTO RFX NEGATIVE (NEGATIVE); MUCUS, URINE RFX MODERATE (NEGATIVE); NITRITE, URINE AUTO RFX NEGATIVE (NEGATIVE); RBC, URINE AUTO RFX 2 /HPF (0-3); SPECIFIC GRAVITY UR AUTO RFX 1.028 (1.002-1.035); SQUAM EPITHELIAL CELL UR AURFX 2 /HPF (0-6); WBC, URINE AUTO RFX 2 /HPF (0-3)
[2018-02-13 21:30] LABS: AMPHETAMINES LEVEL URINE NEGATIVE (NEGATIVE); BARBITURATES URINE NEGATIVE (NEGATIVE); BENZODIAZEPINES URINE NEGATIVE (NEGATIVE); CANNABINOIDS URINE NEGATIVE (NEGATIVE); COCAINE METABOLITE URINE NEGATIVE (NEGATIVE); METHADONE URINE NEGATIVE (NEGATIVE); OPIATES URINE POSITIVE (NEGATIVE); PHENCYCLIDINE URINE NEGATIVE (NEGATIVE)
[2018-02-14] MEDS: KCL 40MEQ in NS 1000ML 1,000 ML IV ×2 (03:48→13:14)
[2018-02-14 05:26] LABS: BASO # 0.1 10^3/uL (0.0-0.2); BASO % 0.8 % (0.0-1.0); EOS # 0.1 10^3/uL (0.0-0.50); EOS % 1.6 % (0.0-3.0); HEMATOCRIT 38.7 % (36.0-47.0); IMMATURE GRANULOCYTE % 0.3 % (0-3.0); LYMPH # 2.5 10^3/uL (1.5-4.5); LYMPH % 40.1 % (24.0-44.0); MEAN CORPUSCULAR HEMOGLOBIN 29.8 pg (27.0-33.0); MEAN CORPUSCULAR HGB CONC 33.1 g/dl (32.0-36.5); MONO # 0.5 10^3/uL (0.0-0.8); MONO % 7.1 % (0.0-5.0); NEUTROPHILS # 3.2 10^3/uL (1.8-7.7); NEUTROPHILS % 50.1 % (36.0-66.0); PLATELET COUNT, AUTOMATED 156 10^3/uL (150-450); RED CELL DISTRIBUTION WIDTH 12.2 % (11.5-14.5); WHITE BLOOD COUNT 6.3 10^3/uL (4.0-10.0)
[2018-02-14 05:30] LABS: HEMOGLOBIN 12.8 g/dl (12.0-15.5)
[2018-02-14 05:40] LABS: ANION GAP 8 MEQ/L (8-16); BLOOD UREA NITROGEN 7 MG/DL (7-18); CARBON DIOXIDE LEVEL 25 MEQ/L (21-32); CHLORIDE LEVEL 112 MEQ/L (98-107); CREATININE FOR GFR 0.52 MG/DL (0.55-1.30); GLOMERULAR FILTRATION RATE > 60.0 (>58); GLUCOSE, FASTING 83 MG/DL (70-100); POTASSIUM SERUM 3.4 MEQ/L (3.5-5.1); SODIUM LEVEL 145 MEQ/L (136-145)
[2018-02-14] MEDS: METOCLOPRAMIDE INJ 10MG/2ML VIAL (J2765) IV ×3 (06:16→23:36)
[2018-02-14] MEDS: levETIRAcetam INJection 500 MG in D5W MINI-BAG PLUS 100 ML IV ×2 (08:50→20:53)
[2018-02-14] MEDS: PROPRANOLOL 20 MG TAB PO ×2 (08:51→20:52)
[2018-02-14] MEDS: rOPINIRole 1MG TAB PO ×2 (08:51→20:50)
[2018-02-14] MEDS: POTASSIUM CHLORIDE 10 MEQ SR TABLET PO (08:51)
[2018-02-14] MEDS: PANTOPRAZOLE 40MG INJ (PROTONIX) (C9113) IV ×2 (08:52→20:51)
[2018-02-14] MEDS: GABAPENTIN 400 MG CAP PO ×3 (08:52→20:51)
[2018-02-14] MEDS: DULoxetine 30 MG CAP (CYMBALTA) PO ×2 (08:53→20:50)
[2018-02-14] MEDS: LORazepam 1 MG TAB PO ×3 (08:53→20:52)
[2018-02-14] MEDS: TOPIRAMATE (TopAMAX) 100 MG TAB PO ×2 (08:53→20:52)
[2018-02-14] MEDS: SUCRALFATE 1 GM TAB PO ×4 (08:53→20:51)
[2018-02-14] MEDS: MORPHINE 30 MG TAB **MSIR PO ×2 (09:14→21:03)
[2018-02-14] MEDS: MORPHINE XX (13:43)
[2018-02-14] MEDS: BUPIVACAINE XX (13:43)
[2018-02-14] MEDS: QUEtiapine FUMARATE 100 MG TAB PO (20:51)
[2018-02-14] MEDS: AMITRIPTYLINE 50 MG TAB PO (20:51)
[2018-02-14] MEDS: ENOXAPARIN 40 MG/0.4 ML SYRINGE (J1650) SC (20:52)
[2018-02-15 06:33] LABS: BASO # 0.1 10^3/uL (0.0-0.2); BASO % 1.4 % (0.0-1.0); EOS # 0.3 10^3/uL (0.0-0.50); EOS % 6.2 % (0.0-3.0); HEMATOCRIT 39.2 % (36.0-47.0); HEMOGLOBIN 12.7 g/dl (12.0-15.5); IMMATURE GRANULOCYTE % 0.2 % (0-3.0); LYMPH # 2.2 10^3/uL (1.5-4.5); LYMPH % 44.2 % (24.0-44.0); MEAN CORPUSCULAR HGB CONC 32.4 g/dl (32.0-36.5); MEAN CORPUSCULAR VOLUME 92.7 fl (80.0-96.0); MONO # 0.4 10^3/uL (0.0-0.8); MONO % 7.2 % (0.0-5.0); NEUTROPHILS % 40.8 % (36.0-66.0); PLATELET COUNT, AUTOMATED 127 10^3/uL (150-450); RED BLOOD COUNT 4.23 10^6/uL (4.00-5.40); RED CELL DISTRIBUTION WIDTH 12.6 % (11.5-14.5); WHITE BLOOD COUNT 4.9 10^3/uL (4.0-10.0)
[2018-02-15] MEDS: METOCLOPRAMIDE INJ 10MG/2ML VIAL (J2765) IV ×3 (06:42→23:32)
[2018-02-15] MEDS: SUCRALFATE 1 GM TAB PO ×4 (06:43→21:13)
[2018-02-15 06:46] LABS: ANION GAP 7 MEQ/L (8-16); BLOOD UREA NITROGEN 10 MG/DL (7-18); CALCIUM LEVEL 7.9 MG/DL (8.5-10.1); CARBON DIOXIDE LEVEL 25 MEQ/L (21-32); CHLORIDE LEVEL 113 MEQ/L (98-107); CREATININE FOR GFR 0.58 MG/DL (0.55-1.30); GLOMERULAR FILTRATION RATE > 60.0 (>58); GLUCOSE, FASTING 82 MG/DL (70-100); POTASSIUM SERUM 3.5 MEQ/L (3.5-5.1); SODIUM LEVEL 145 MEQ/L (136-145)
[2018-02-15] MEDS: levETIRAcetam INJection 500 MG in D5W MINI-BAG PLUS 100 ML IV (09:21)
[2018-02-15] MEDS: PANTOPRAZOLE 40MG INJ (PROTONIX) (C9113) IV ×2 (09:21→21:13)
[2018-02-15] MEDS: rOPINIRole 1MG TAB PO ×2 (09:22→21:13)
[2018-02-15] MEDS: GABAPENTIN 400 MG CAP PO ×3 (09:22→21:14)
[2018-02-15] MEDS: TOPIRAMATE (TopAMAX) 100 MG TAB PO ×2 (09:22→21:14)
[2018-02-15] MEDS: DULoxetine 30 MG CAP (CYMBALTA) PO ×2 (09:23→21:14)
[2018-02-15] MEDS: LORazepam 1 MG TAB PO ×3 (09:23→21:15)
[2018-02-15] MEDS: PROPRANOLOL 20 MG TAB PO ×2 (09:57→21:14)
[2018-02-15] MEDS: BUPIVACAINE XX ×2 (10:52→20:30)
[2018-02-15] MEDS: MORPHINE 30 MG TAB **MSIR PO ×2 (10:52→22:02)
[2018-02-15] MEDS: MORPHINE XX ×2 (10:52→20:30)
[2018-02-15 15:13] LABS: BEDSIDE GLUCOSE 117 MG/DL (70-105)
[2018-02-15] MEDS: QUEtiapine FUMARATE 100 MG TAB PO (21:14)
[2018-02-15] MEDS: ENOXAPARIN 40 MG/0.4 ML SYRINGE (J1650) SC (21:15)
[2018-02-15] MEDS: AMITRIPTYLINE 50 MG TAB PO (21:15)
[2018-02-16] MEDS: METOCLOPRAMIDE INJ 10MG/2ML VIAL (J2765) IV (06:20)
[2018-02-16 06:54] LABS: BASO # 0.1 10^3/uL (0.0-0.2); BASO % 0.9 % (0.0-1.0); EOS # 0.3 10^3/uL (0.0-0.50); EOS % 5.5 % (0.0-3.0); HEMATOCRIT 39.9 % (36.0-47.0); HEMOGLOBIN 12.8 g/dl (12.0-15.5); IMMATURE GRANULOCYTE % 0.4 % (0-3.0); LYMPH # 2.7 10^3/uL (1.5-4.5); MEAN CORPUSCULAR HEMOGLOBIN 30.3 pg (27.0-33.0); MEAN CORPUSCULAR HGB CONC 32.1 g/dl (32.0-36.5); MEAN CORPUSCULAR VOLUME 94.5 fl (80.0-96.0); MONO # 0.4 10^3/uL (0.0-0.8); MONO % 6.4 % (0.0-5.0); NEUTROPHILS # 2.1 10^3/uL (1.8-7.7); NEUTROPHILS % 37.8 % (36.0-66.0); PLATELET COUNT, AUTOMATED 150 10^3/uL (150-450); RED BLOOD COUNT 4.22 10^6/uL (4.00-5.40); RED CELL DISTRIBUTION WIDTH 12.5 % (11.5-14.5); WHITE BLOOD COUNT 5.4 10^3/uL (4.0-10.0)
[2018-02-16 07:17] LABS: ANION GAP 7 MEQ/L (8-16); BLOOD UREA NITROGEN 9 MG/DL (7-18); CARBON DIOXIDE LEVEL 25 MEQ/L (21-32); CHLORIDE LEVEL 114 MEQ/L (98-107); CREATININE FOR GFR 0.64 MG/DL (0.55-1.30); GLOMERULAR FILTRATION RATE > 60.0 (>58); GLUCOSE, FASTING 82 MG/DL (70-100); POTASSIUM SERUM 3.3 MEQ/L (3.5-5.1); SODIUM LEVEL 146 MEQ/L (136-145)
[2018-02-16] MEDS: SUCRALFATE 1 GM TAB PO (08:13)
[2018-02-16] MEDS: POTASSIUM CHLORIDE 10 MEQ SR TABLET PO (08:13)
[2018-02-16] MEDS: LORazepam 1 MG TAB PO (08:13)
[2018-02-16] MEDS: DULoxetine 30 MG CAP (CYMBALTA) PO (08:14)
[2018-02-16] MEDS: TOPIRAMATE (TopAMAX) 100 MG TAB PO (08:14)
[2018-02-16] MEDS: PROPRANOLOL 20 MG TAB PO (08:14)
[2018-02-16] MEDS: GABAPENTIN 400 MG CAP PO (08:14)
[2018-02-16] MEDS: rOPINIRole 1MG TAB PO (08:14)
[2018-02-16] MEDS: PANTOPRAZOLE 40MG INJ (PROTONIX) (C9113) IV (08:14)
== END 2018-02-16 10:47 | disposition home or self-care (01) | DRG 101 ==
LOC: M MSPAV 02-14 18:16 → M ED 11:08 → M ED INP 13:59 → M PCU 15:30
DX: G40.409 Other generalized epilepsy and epileptic syndromes, not intractable, without status epilepticus (principal); F13.239 Sedative, hypnotic or anxiolytic dependence with withdrawal, unspecified; F15.23 Other stimulant dependence with withdrawal; E87.6 Hypokalemia; K21.9 Gastro-esophageal reflux disease without esophagitis; G43.909 Migraine, unspecified, not intractable, without status migrainosus; G25.81 Restless legs syndrome; A08.4 Viral intestinal infection, unspecified; Z79.899 Other long term (current) drug therapy; Z88.8 Allergy status to other drugs, medicaments and biological substances; M54.5 Low back pain; Z98.84 Bariatric surgery status; F41.9 Anxiety disorder, unspecified

== ENCOUNTER → 2018-03-10 | Outpatient (CLI) | payer MEDICARE, MEDICAID ==
[2018-03-10 16:35] LABS: BASO # 0.1 10^3/uL (0.0-0.2); BASO % 1.2 % (0.0-1.0); EOS # 0.3 10^3/uL (0.0-0.50); EOS % 3.4 % (0.0-3.0); HEMATOCRIT 45.9 % (36.0-47.0); HEMOGLOBIN 15.1 g/dl (12.0-15.5); IMMATURE GRANULOCYTE % 0.1 % (0-3.0); LYMPH # 2.5 10^3/uL (1.5-4.5); LYMPH % 33.2 % (24.0-44.0); MEAN CORPUSCULAR HEMOGLOBIN 30.3 pg (27.0-33.0); MEAN CORPUSCULAR HGB CONC 32.9 g/dl (32.0-36.5); MONO # 0.6 10^3/uL (0.0-0.8); MONO % 7.7 % (0.0-5.0); NEUTROPHILS # 4.1 10^3/uL (1.8-7.7); NEUTROPHILS % 54.4 % (36.0-66.0); PLATELET COUNT, AUTOMATED 250 10^3/uL (150-450); RED BLOOD COUNT 4.99 10^6/uL (4.00-5.40); RED CELL DISTRIBUTION WIDTH 12.8 % (11.5-14.5); WHITE BLOOD COUNT 7.6 10^3/uL (4.0-10.0)
[2018-03-10 16:53] LABS: ALBUMIN 3.8 GM/DL (3.2-5.2); ALBUMIN/GLOBULIN RATIO 1.31 (1.00-1.93); ALKALINE PHOSPHATASE 122 U/L (45-117); ALT/SGPT 66 U/L (12-78); ANION GAP 7 MEQ/L (8-16); AST/SGOT 62 U/L (7-37); BILIRUBIN,TOTAL 0.3 MG/DL (0.2-1.0); BLOOD UREA NITROGEN 13 MG/DL (7-18); CALCIUM LEVEL 8.7 MG/DL (8.5-10.1); CARBON DIOXIDE LEVEL 25 MEQ/L (21-32); CHLORIDE LEVEL 112 MEQ/L (98-107); CREATININE FOR GFR 0.65 MG/DL (0.55-1.30); GLOMERULAR FILTRATION RATE > 60.0 (>58); GLUCOSE, FASTING 68 MG/DL (70-100); POTASSIUM SERUM 3.9 MEQ/L (3.5-5.1); SODIUM LEVEL 144 MEQ/L (136-145); TOTAL PROTEIN 6.7 GM/DL (6.4-8.2)
[2018-03-14 14:20] LABS: TOPIRAMATE LEVEL 7.6 ug/mL (2.0-25.0)
== END ==
LOC: M LAB 15:32
DX: R56.9 Unspecified convulsions (principal); E87.6 Hypokalemia; R51 Headache
CPT/HCPCS: 80053

== ENCOUNTER → 2018-05-23 | Outpatient (CLI) | payer MEDICARE, MEDICAID | LOC: M RAD 10:22 | DX: M25.551 Pain in right hip (principal); M25.552 Pain in left hip; M54.5 Low back pain | CPT/HCPCS: 72110 ==

== ENCOUNTER → 2018-06-29 | Outpatient (CLI) | payer MEDICARE, MEDICAID ==
[2018-06-29 07:00] LABS: BASO # 0.1 10^3/uL (0.0-0.2); BASO % 1.2 % (0.0-1.0); EOS # 0.2 10^3/uL (0.0-0.50); EOS % 3.1 % (0.0-3.0); HEMATOCRIT 48.3 % (36.0-47.0); HEMOGLOBIN 15.4 g/dl (12.0-15.5); IMMATURE GRANULOCYTE % 0.2 % (0-3.0); LYMPH # 1.9 10^3/uL (1.5-4.5); LYMPH % 36.2 % (24.0-44.0); MEAN CORPUSCULAR HGB CONC 31.9 g/dl (32.0-36.5); MEAN CORPUSCULAR VOLUME 94.2 fl (80.0-96.0); MONO # 0.2 10^3/uL (0.0-0.8); MONO % 4.3 % (0.0-5.0); NEUTROPHILS # 2.9 10^3/uL (1.8-7.7); PLATELET COUNT, AUTOMATED 203 10^3/uL (150-450); RED BLOOD COUNT 5.13 10^6/uL (4.00-5.40); RED CELL DISTRIBUTION WIDTH 12.8 % (11.5-14.5); WHITE BLOOD COUNT 5.2 10^3/uL (4.0-10.0)
[2018-06-29 07:35] LABS: ALBUMIN 3.5 GM/DL (3.2-5.2); ALBUMIN/GLOBULIN RATIO 1.21 (1.00-1.93); ALKALINE PHOSPHATASE 133 U/L (45-117); ALT/SGPT 101 U/L (12-78); ANION GAP 8 MEQ/L (8-16); AST/SGOT 88 U/L (7-37); BILIRUBIN,TOTAL 0.3 MG/DL (0.2-1.0); BLOOD UREA NITROGEN 14 MG/DL (7-18); CALCIUM LEVEL 8.1 MG/DL (8.5-10.1); CARBON DIOXIDE LEVEL 25 MEQ/L (21-32); CHLORIDE LEVEL 108 MEQ/L (98-107); CHOLESTEROL LEVEL 193 MG/DL (<200); CHOLESTEROL RISK RATIO 3.271 (<5); CREATININE FOR GFR 0.69 MG/DL (0.55-1.30); FERRITIN 616 NG/ML (8-252); FREE T4 0.84 NG/DL (0.76-1.46); GLOMERULAR FILTRATION RATE > 60.0 (>58); GLUCOSE, FASTING 82 MG/DL (70-100); HDL CHOLESTEROL 59 MG/DL (>40); IRON (FE) 120 UG/DL (50-170); LDL CHOLESTEROL 115 MG/DL (<100); NON-HDL-C 134 MG/DL; PERCENT SATURATION 54.5 % (13.2-45.0); POTASSIUM SERUM 3.8 MEQ/L (3.5-5.1); SODIUM LEVEL 141 MEQ/L (136-145); TOTAL IRON BINDING CAPACITY 220 UG/DL (250-450); TOTAL PROTEIN 6.4 GM/DL (6.4-8.2); TRIGLYCERIDES LEVEL 94 MG/DL (<150)
[2018-06-29 09:57] LABS: TOTAL 25(OH) VITAMIN D 24.7 NG/ML (30.0-100.0)
[2018-06-29 09:58] LABS: VITAMIN B12 LEVEL 341 PG/ML (247-911)
[2018-07-04 00:06] LABS: VITAMIN A, RETINOL LEVEL 34.2 ug/dL (33.1-100.0)
== END ==
LOC: M LAB 06:07
DX: R63.8 Other symptoms and signs concerning food and fluid intake (principal); E55.9 Vitamin D deficiency, unspecified; E78.2 Mixed hyperlipidemia; Z98.84 Bariatric surgery status
CPT/HCPCS: 83550

== ENCOUNTER → 2018-09-20 | Outpatient (CLI) | payer MEDICARE, MEDICAID ==
[~2018-09-20] MED LIST changes: +ACET500T15 PO; +BENT10CA PO; +DICY10CA13 PO; -DRIS50002 PO; +DRIS50003 PO; +DULO1CAP3 PO; -GABA-283 PO; +GABA-845 PO; +GABA800T4 PO; -INDE80CA PO; +INDE80CA9 PO; +MORP15TA2 PO; +PATIENT COMMENT; +PROP40TA62 PO; -ROPI3TAB PO; +ROPI3TAB3 PO; +ZOFR4TAB14 PO; -ZOFR4TAB3 PO
[2018-09-20 07:04] LABS: BASO # 0.1 10^3/uL (0.0-0.2); EOS # 0.1 10^3/uL (0.0-0.50); EOS % 2.4 % (0.0-3.0); HEMATOCRIT 48.4 % (36.0-47.0); HEMOGLOBIN 15.8 g/dl (12.0-15.5); LYMPH # 2.3 10^3/uL (1.5-4.5); LYMPH % 39.1 % (24.0-44.0); MEAN CORPUSCULAR HGB CONC 32.6 g/dl (32.0-36.5); MEAN CORPUSCULAR VOLUME 91.8 fl (80.0-96.0); MONO # 0.3 10^3/uL (0.0-0.8); MONO % 4.6 % (0.0-5.0); NEUTROPHILS # 3.1 10^3/uL (1.8-7.7); NEUTROPHILS % 52.7 % (36.0-66.0); PLATELET COUNT, AUTOMATED 234 10^3/uL (150-450); RED BLOOD COUNT 5.27 10^6/uL (4.00-5.40); WHITE BLOOD COUNT 5.8 10^3/uL (4.0-10.0)
[2018-09-20 07:35] LABS: ALBUMIN 3.4 GM/DL (3.2-5.2); ALT/SGPT 31 U/L (12-78); BILIRUBIN,TOTAL 0.4 MG/DL (0.2-1.0); BLOOD UREA NITROGEN 10 MG/DL (7-18); CALCIUM LEVEL 8.6 MG/DL (8.5-10.1); CARBON DIOXIDE LEVEL 24 MEQ/L (21-32); CHLORIDE LEVEL 110 MEQ/L (98-107); CHOLESTEROL LEVEL 189 MG/DL (<200); CHOLESTEROL RISK RATIO 3.937 (<5); CREATININE FOR GFR 0.61 MG/DL (0.55-1.30); GLOMERULAR FILTRATION RATE > 60.0 (>58); GLUCOSE, FASTING 83 MG/DL (70-100); HDL CHOLESTEROL 48 MG/DL (>40); LDL CHOLESTEROL 110 MG/DL (<100); NON-HDL-C 141 MG/DL; POTASSIUM SERUM 4.3 MEQ/L (3.5-5.1); SODIUM LEVEL 141 MEQ/L (136-145); TOTAL PROTEIN 6.5 GM/DL (6.4-8.2); TRIGLYCERIDES LEVEL 154 MG/DL (<150)
[2018-09-20 08:38] LABS: TOTAL 25(OH) VITAMIN D 16.3 NG/ML (30.0-100.0)
[2018-09-21 09:08] LABS: HEPATITIS B SURFACE ANTIBODY NEGATIVE (POSITIVE)
[2018-09-21 09:17] LABS: HEPATITIS B SURFACE ANTIGEN NEGATIVE (NEGATIVE)
[2018-09-22 08:33] LABS: HEPATITIS A IgG TOTAL Negative (Negative)
[2018-09-27 00:06] LABS: HEPATITIS C QUANTITATION HCV Not Detected IU/mL (.)
== END ==
LOC: M LAB 06:16
PROVIDERS: ATTEND Physician Assistant Medical
DX: R53.83 Other fatigue (principal); E78.00 Pure hypercholesterolemia, unspecified

== ENCOUNTER → 2019-01-05 | Outpatient (CLI) | payer MEDICARE, MEDICAID ==
[~2019-01-05] MED LIST changes: -/DULO30CA PO; -/ESOM40CA; -/FENT25PA; -/PANT40TA; -/SUCR1TA OR; +CYMB1CAP5 PO; -DULO30CA PO; +DULO30CA9 PO; +FENT1DIS14; +NEXI1CAP3; +PROT1TAB2; +SUCR1TAB56 OR
--- NOTE | 2019-01-05 10:04 | REP ---
MAXILLOFACIAL CT WITHOUT CONTRAST: HISTORY: Acute maxillary sinusitis. COMPARISON: 07/31/2015 The uncinate processes are incompletely seen. This is due to previous surgery or demineralization secondary to chronic sinusitis. Very minimal mucosal thickening is present in the maxillary sinuses. The remaining sinuses are clear. Mucosal thickening involves the ostiomeatal units. The middle and inferior nasal turbinates are partially paradoxical. The nasal septum is midline. The cribriform plate, medial choi of the orbits and optic canals are intact. The carotid canals form a segment of the posterolateral choi of the sphenoid sinus. IMPRESSION: Sinus mucosal thickening as described above. Electronically Signed by William Dobbs MD 01/05/2019 10:07 A
== END ==
LOC: M RAD 09:27
PROVIDERS: ATTEND Otolaryngology
DX: J01.00 Acute maxillary sinusitis, unspecified (principal)

== ENCOUNTER → 2019-07-20 | Outpatient (CLI) | payer MEDICARE, MEDICAID ==
[~2019-07-20] MED LIST changes: -DULO1CAP3 PO; +DULO1CAP6 PO; -MORP-38 PO; +MORP-69 PO; -OMEP40CA2 PO; +OMEP40CA97 PO
--- NOTE | 2019-07-24 13:24 | DEXA ---
AP SPINE L1 - L4 1.127 -0.5 -0.5 LT FEMUR TOTAL 0.762 -1.9 -1.7 LT NECK 0.885 -1.1 -0.6 RT FEMUR TOTAL 0.785 -1.8 -1.5 RT NECK 0.927 -0.8 -0.3 TOTAL BODY TOTAL OTHER COMMENTS: Normal bone densitometry of the spine. Normal bone densitometry of the right hip. There is low bone density of the left hip. FOLLOW-UP: Recommendation for the next bone density exam: 2 years. HAYDE
== END ==
LOC: M WHC 09:03
PROVIDERS: ATTEND Physician Assistant
DX: Z13.820 Encounter for screening for osteoporosis (principal); M85.862 Other specified disorders of bone density and structure, left lower leg

== ENCOUNTER → 2020-05-31 | Outpatient (CLI) | payer MEDICARE, MEDICAID ==
[~2020-05-31] MED LIST changes: -MONT10TA2 PO; +MONT10TA4 PO; +QUET100T2 PO; -QUET1TAB8 PO
[2020-05-31 10:53] LABS: BASO # 0.1 10^3/uL (0.0-0.2); BASO % 1.2 % (0.0-1.0); EOS # 0.1 10^3/uL (0.0-0.5); EOS % 2.2 % (0.0-3.0); HEMATOCRIT 51.4 % (36.0-47.0); LYMPH # 1.3 10^3/uL (1.5-5.0); LYMPH % 25.5 % (24.0-44.0); MEAN CORPUSCULAR HEMOGLOBIN 31.6 pg (27.0-33.0); MEAN CORPUSCULAR HGB CONC 31.1 g/dl (32.0-36.5); MEAN CORPUSCULAR VOLUME 101.4 fl (80.0-96.0); MONO # 0.3 10^3/uL (0.0-0.8); MONO % 5.1 % (0.0-5.0); NEUTROPHILS # 3.3 10^3/uL (1.5-8.5); NEUTROPHILS % 65.8 % (36.0-66.0); PLATELET COUNT, AUTOMATED 198 10^3/uL (150-450); RED BLOOD COUNT 5.07 10^6/uL (4.00-5.40); WHITE BLOOD COUNT 5.1 10^3/uL (4.0-10.0)
[2020-05-31 11:09] LABS: ERYTHROCYTE SEDIMENTATION RATE 3 mm/hr (0-20)
== END ==
LOC: M PLALAB 08:30
PROVIDERS: ATTEND Allergy & Immunology Allergy
DX: D84.9 Immunodeficiency, unspecified (principal)

== ENCOUNTER → 2020-05-31 | Outpatient (CLI) | payer MEDICARE, MEDICAID ==
--- NOTE | 2020-05-31 11:13 | REP ---
INDICATION: EVAL PRESENCE OF MORPHINE PUMP, BACK PAIN. Evaluate for intrathecal pump granuloma and evaluate the intrathecal catheter. COMPARISON: Comparison MRI study of the lumbar spine October 21, 2005.. TECHNIQUE: Sagittal and axial T1 and T2-weighted scans are acquired in the usual fashion with and without fat saturation. Sequences include spin echo, turbo spin-echo, and STIR imaging sequences. The gadolinium enhancement dose is 17 mL of intravenous ProHance. FINDINGS: The patient is status post L4-5 and L5-S1 discectomy and transpedicle screw interconnecting sara fusion. The L4-5 and L5-S1 discs contain metallic spacer artifact and appear ankylosed. Artifact from transpedicle screws is seen bilaterally at these 3 levels. There is no evidence of thecal sac compression or stenosis at L5-S1 or L4-5. There is minimal facet hypertrophy at these 2 levels. No foraminal stenosis is appreciated. At L3-4, there is degenerative narrowing and decreased signal intensity in the disc. There is diffuse disc bulging indenting the ventral margin of the thecal sac. Mild central canal narrowing is seen due to this in combination with mild bilateral ligamentum flavum and facet hypertrophy. The midline AP dimension of the thecal sac at the L3-4 disc level is 11.7 mm. There is mild foraminal disc bulging but no nerve root compression is seen on either side. At L2-3, there is mild degenerative narrowing of the disc. Minimal disc bulging is present. No focal protrusion is seen. No spinal stenosis or foraminal narrowing is seen. At L1-2, posterior disc margin is intact. The tip of the conus medullaris is normal in position and appearance at T12-L1. Postoperative fibrosis is seen in paramedian dorsal soft tissues posterior to the spinous processes in the lumbar spine from previous surgery. No abnormal fluid collection is seen. By history, the patient has a spinal intrathecal morphine infusion pump and catheter. I am not aware of the location of its placement. This device is not resolved on the current MR images. Comparison with radiographs and possibly CT may be helpful. In any event, no evidence of intradural mass or enhancing granuloma is seen. No abnormal intra spinal enhancement is appreciated.. IMPRESSION: Status post L4 through S1 fusion bilaterally. Degenerative disc disease L3-4 with diffuse disc bulging and very mild central canal stenosis. No neural foraminal impingement seen. The patient is intrathecal morphine infusion pump an associated catheter are not resolved. <Electronically signed by Mauri Richmond > 05/31/20 [id number]
--- NOTE | 2020-05-31 11:38 | REP ---
INDICATION: EVAL PRESENCE OF MORPHINE PUMP, BACK PAIN. Evaluate for intrathecal pump granuloma and evaluate the injection catheter. COMPARISON: Comparison MRI thoracic spine is from October 27, 2005.. TECHNIQUE: Sagittal and axial T1 and T2-weighted scans are acquired in the usual fashion with and without fat saturation. Sequences include spin echo, turbo spin-echo, and STIR imaging sequences. Gadolinium enhancement dose is 17 mL of intravenous ProHance. Postcontrast imaging is also acquired in the axial and sagittal planes. FINDINGS: There is slightly exaggerated thoracic kyphosis. There is mild anterior wedging at the T3 and T7 vertebral bodies. This appears to be chronic. Cortical and medullary bone signal intensity are normal. No bony destructive lesion is seen. The thoracic cord is normal in course, caliber and signal intensity on T1 and T2 weighted scans. No cord compressive lesion is seen. No intrathecal catheter or other mass or nodule is seen. No intramedullary lesion is seen. Postcontrast images show no abnormal contrast enhancement. There is central disc bulging at the T6-7 disc level. This does not contact the cord. No neural foraminal lesion is seen. There is mild disc bulging along the right posterior disc margin at the T2-3 level again without evidence of cord compression. The patient has a history of intrathecal more morphine infusion pump and intrathecal catheter. These are not resolved in the field of view for this study. IMPRESSION: Minimal degenerative disc changes. 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 Minimal disc bulging as above. There is no evidence of intradural or intraspinal mass, nodule, or abnormal contrast enhancement. No abnormal intraspinal fluid collection is seen. <Electronically signed by Mauri Richmond > 05/31/20 [id number]
== END ==
LOC: M PLARAD 07:36
PROVIDERS: ATTEND Anesthesiology Pain Medicine
DX: M96.1 Postlaminectomy syndrome, not elsewhere classified (principal); Z97.8 Presence of other specified devices; D84.9 Immunodeficiency, unspecified; M51.36 Other intervertebral disc degeneration, lumbar region

== ENCOUNTER → 2020-07-22 | Outpatient (CLI) | payer MEDICARE, MEDICAID ==
[~2020-07-22] MED LIST changes: -MONT10TA4 PO; +MONT5TAB2 PO
[2020-07-22 09:35] LABS: IMMUNOGLOBULIN E 10.5 IU/ML (<100); IMMUNOGLOBULIN M 40.4 MG/DL (40-230)
[2020-07-25 14:10] LABS: IgG SERUM (part of Subclasses) 755 mg/dL (586-1602); IgG Subclass 1 350 mg/dL (248-810); IgG Subclass 2 253 mg/dL (130-555); IgG Subclass 3 72 mg/dL (15-102); IgG Subclass 4 36 mg/dL (2-96)
== END ==
LOC: M LAB 08:28
PROVIDERS: ATTEND Allergy & Immunology Allergy
DX: D84.9 Immunodeficiency, unspecified (principal)

== ENCOUNTER → 2021-01-27 | Outpatient (REF) ==
[~2021-01-27] MED LIST changes: +GABA-283 PO; -GABA-845 PO; +MONT10TA10 PO; -MONT5TAB2 PO; +OMEP40CA4 PO; -OMEP40CA97 PO
[2021-01-27 19:33] LABS: INFLUENZA A AMPLIFICATION NEGATIVE (NEGATIVE); INFLUENZA B AMPLIFICATION NEGATIVE (NEGATIVE)
== END ==
LOC: M LAB 12:01